=== PATIENT | female | born 1955 | race Two or more races ===

== ENCOUNTER 2024-12-31 22:57 | Emergency (ER) | payer MEDICAID ==
[~2024-12-31] VITALS: Ht 157.5 cm; Wt 59.0 kg
[2024-12-31 23:17] VITALS: BP 140/86; TEMP 97.1; O2SAT 98
== END 2024-12-31 23:44 | disposition left against medical advice (07) ==
LOC: ER 22:59
DX: R07.9 Chest pain, unspecified (principal); F41.9 Anxiety disorder, unspecified